=== PATIENT | male | born 2000 | race Caucasian/White ===

== ENCOUNTER 2019-07-22 11:34 | Emergency (ER) | payer OTHER ==
[2019-07-22 12:12] VITALS: BP 148/88
--- NOTE | 2019-07-22 12:13 | UC ---
Eye Complaint HPI - HPI Summary HPI Summary: 18 yo male presents with cold symptoms. He tells me for the last 5-6 days he has been having cold symptoms consisting of a runny nose, sinus congestion, post nasal drip, and intermittent dry cough. 3 days ago he woke up and noticed his eyes were watery and red - have been like this since. He does not wear glasses or contacts. He has not been taking anything OTC for his symptoms. Denies fever, chills, vision changes, eye pain, SOB, rash, n/v - History of Current Complaint Chief Complaint: UCEye Stated Complaint: EYE PROBLEM Time Seen by Provider: 07/22/19 12:13 Hx Obtained From: Patient Onset/Duration: Gradual Onset Severity Currently: None Pain Intensity: 0 - Allergies/Home Medications Allergies/Adverse Reactions: Allergies Allergy/AdvReac Type Severity Reaction Status Date / Time No Known Allergies Allergy Verified 07/22/19 12:12 PMH/Surg Hx/FS Hx/Imm Hx - Additional Past Medical History Additional PMH: None - Surgical History Surgical History: None - Family History Known Family History: Positive: None - Social History Lives: With Family Alcohol Use: Rare Substance Use Type: Marijuana Smoking Status (MU): Never Smoked Tobacco - Immunization History Vaccination Up to Date: Yes Review of Systems All Other Systems Reviewed And Are Negative: No Constitutional: Positive: Negative Skin: Positive: Negative Eyes: Positive: Drainage, Eye Redness ENT: Positive: Nasal Discharge Respiratory: Positive: Cough Cardiovascular: Positive: Negative Gastrointestinal: Positive: Negative Neurological: Positive: Negative Psychological: Positive: Negative Physical Exam - Summary Physical Exam Summary: GENERAL: NAD. WDWN. No pain distress. SKIN: No rashes, sores, lesions, or open wounds. HEENT: Head: AT/NC Eyes: EOM intact. PERRLA. B/L eyes with mild conjunctival inflammation and sclera injection. Clear drainage. Ears: Hearing grossly normal. TMs intact, no bulging, erythema, or edema. Nose: Nasal mucosa pink and moist. NTTP maxillary and frontal sinus. Throat: Posterior oropharynx without exudates, erythema, or tonsillar enlargement. Uvula midline. NECK: Supple. Nontender. No lymphadenopathy. CHEST: CTAB. No r/r/w. No accessory muscle use. Breathing comfortably and in no distress. CV: RRR. Pulses intact. Cap refill <2seconds NEURO: Alert. PSYCH: Age appropriate behavior. Triage Information Reviewed: Yes Vital Signs: Initial Vital Signs Temp 98.1 F 07/22/19 12:07 Pulse 83 07/22/19 12:07 Resp 18 07/22/19 12:07 BP 148/88 07/22/19 12:07 Pulse Ox 97 07/22/19 12:07 Vital Signs Reviewed: Yes Eye Complaint Course/Dx - Course Course Of Treatment: Suspect viral/allergic conjunctivitis. Will rx for symptomatic relief eye drops and advise him to continue supportive care for his likely viral cold and be rechecked if symptoms do not improve - Differential Dx/Diagnosis Provider Diagnosis: Allergic conjunctivitis Discharge ED - Sign-Out/Discharge Documenting (check all that apply): Patient Departure All imaging exams completed and their final reports reviewed: No Studies - Discharge Plan Condition: Stable Disposition: HOME Prescriptions: Olopatadine 0.2% (NF) [Pataday 0.2% (NF)] 1 drop BOTH EYES BID #1 btl Patient Education Materials: Allergic Rhinitis (ED) Referrals: No Primary Care Phys,NOPCP [Primary Care Provider] - Additional Instructions: Your symptoms are likely from a viral infection. Viral infections do not respond to antibiotics and are limited to the treatment of symptoms. Viral infections typically run their course in 7-10 days. Drink plenty of fluids, especially if you are running any fever. Use salt water gargles several times a day. Take over the counter acetaminophen (Tylenol) or ibuprofen (Advil, Motrin) according to directions as needed for pain or fever. You may also use Chloraseptic spray or Cepacol lonzenges according to directions which contain a numbing medication and can provide some temporary relief from a sore throat. Return here or follow up with your primary care provider in 7 days if symptoms persist. - Billing Disposition and Condition Condition: STABLE Disposition: Home
== END 2019-07-22 12:24 | disposition home or self-care (01) ==
LOC: UCEAST 11:34
DX: H10.13 Acute atopic conjunctivitis, bilateral (principal); R05 Cough
CPT/HCPCS: 99201; G0463

== ENCOUNTER 2019-10-27 17:26 | Emergency (ER) | payer OTHER ==
[2019-10-27] MEDS ORDERED: Albuterol/Ipratropium NEB.SOL* (2.5/0.5 MG) 3 ML NEB.SOLN INH ONE (21:19)
[2019-10-27] MEDS: Albuterol/Ipratropium NEB.SOL* (2.5/0.5 MG) 3 ML NEB.SOLN INH SCH (22:35)
--- NOTE | 2019-10-27 22:40 | ED ---
HPI Chest Pain - HPI Summary HPI Summary: 18-year-old male presents with chest pain today. States that chest pain feels like a dull pain. States that is worst when he takes a deep breath. He admits to shortness of breath. No cough. No fevers. No sinus congestion or sore throat. No abdominal pain. No nausea or vomiting. Was not doing anything when the pain started. Pain is constant. Has no medical conditions. No family history of cardiac disease. Denies any drug or alcohol use. Does vape. - History of Current Complaint Chief Complaint: EDChestWallPain Time Seen by Provider: 10/27/19 22:25 Pain Intensity: 6 - Allergy/Home Medications Allergies/Adverse Reactions: Allergies Allergy/AdvReac Type Severity Reaction Status Date / Time No Known Allergies Allergy Verified 07/22/19 12:12 Home Medications: Home Medications NK [No Home Medications Reported] 10/27/19 [History Confirmed 10/27/19] PMH/Surg Hx/FS Hx/Imm Hx Endocrine/Hematology History: Denies: Hx Anticoagulant Therapy Respiratory History: Denies: Hx Asthma Infectious Disease History: No Infectious Disease History: Denies: Traveled Outside the [place] in Last 30 Days - Family History Known Family History: Positive: None - Social History Alcohol Use: None Substance Use Type: Reports: None Smoking Status (MU): Current Some Day Smoker Review of Systems Negative: Fever Positive: Chest Pain Positive: Shortness Of Breath. Negative: Cough All Other Systems Reviewed And Are Negative: Yes Physical Exam Triage Information Reviewed: Yes Vital Signs On Initial Exam: Initial Vitals Temp Pulse Resp BP Pulse Ox 98.8 F 98 18 174/106 98 10/27/19 17:30 10/27/19 17:30 10/27/19 17:30 10/27/19 17:30 10/27/19 17:30 Vital Signs Reviewed: Yes Appearance: Positive: Well-Appearing Skin: Positive: Warm, Dry Head/Face: Positive: Normal Head/Face Inspection Eyes: Positive: Normal, Conjunctiva Clear ENT: Positive: Pharynx normal Respiratory/Lung Sounds: Positive: Clear to Auscultation, Breath Sounds Present Cardiovascular: Positive: Normal, RRR Abdomen Description: Positive: Nontender, Soft Bowel Sounds: Positive: Present Musculoskeletal: Positive: Normal Neurological: Positive: Normal Psychiatric: Positive: Normal Procedures - Sedation Patient Received Moderate/Deep Sedation with Procedure: No Diagnostics - Vital Signs Vital Signs Temp Pulse Resp BP Pulse Ox 10/27/19 20:53 99.1 F 79 20 156/98 98 10/27/19 18:48 98.8 F 85 16 161/93 96 10/27/19 17:30 98.8 F 98 18 174/106 98 - Laboratory Result Diagrams: 10/27/19 21:20 10/27/19 21:20 Lab Statement: Any lab studies that have been ordered have been reviewed, and results considered in the medical decision making process. - Radiology chest Radiology Interpretation Completed By: ED Physician Summary of Radiographic Findings: no active disease - EKG No standard instances Cardiac Rate: NL EKG Rhythm: Sinus Rhythm Summary of EKG Findings: sinus rhythm Chest Pain Course/Dx - Course Course Of Treatment: 18-year-old male presents with chest pain today. States that chest pain feels like a dull pain. States that is worst when he takes a deep breath. He admits to shortness of breath. No cough. No fevers. No sinus congestion or sore throat. No abdominal pain. No nausea or vomiting. Was not doing anything when the pain started. Pain is constant. Has no medical conditions. No family history of cardiac disease. Denies any drug or alcohol use. Does vape. On exam lungs clear to auscultation. Heart regular rate and rhythm. EKG shows sinus rhythm. Chest x-ray normal. Troponin 0. Heart score of 1. no risk factors for PE. We'll discharge to have follow up with primary. Patient understands agrees plan. - Chest Pain Differential Diagnosis/HQI/PQRI: Angina, Chest Wall, Lower Respiratory Infection - Diagnoses Provider Diagnoses: Atypical chest pain - Critical Care Time Critical Care Statement: Critical care time is provided exclusive of any time spent performing procedures. Discharge ED - Sign-Out/Discharge Documenting (check all that apply): Patient Departure - Discharge Plan Condition: Good Disposition: HOME Patient Education Materials: Chest Pain (ED) Referrals: [facility] – [place] [facility] [Outside] - Billing Disposition and Condition Condition: GOOD Disposition: Home
[2019-10-27 22:47] LABS: ABS Eosinophils 0.1 10^3/ul (0-0.6); ABS Lymphocytes 1.9 10^3/ul (1.0-4.8); ABS Monocytes 0.5 10^3/ul (0-0.8); ABS Neutrophils 7.6 10^3/ul (1.5-7.7); Eosinophil % 1.5 %; Hematocrit 51 % (42-52); Hemoglobin 18.2 g/dL (14.0-18.0); Lymphocyte % 18.5 %; Mean Corpuscular HGB Conc 36 g/dL (31-36); Mean Corpuscular Hemoglobin 30 pg (27-31); Mean Corpuscular Volume 85 fL (80-94); Mean Platelet Volume 7.5 fL (7.4-10.4); Nucleated Red Blood Cells % 0.1; Platelet Count 275 10^3/uL (150-450); Red Cell Distribution Width 13 % (10-15); White Blood Count 10.2 10^3/uL (3.5-10.8)
[2019-10-27 22:49] LABS: INR 1.27 (0.82-1.09)
[2019-10-27 23:02] LABS: Albumin 5.1 g/dL (3.2-5.2); Albumin/Globulin Ratio 1.9 (1-3); BUN/Creatinine Ratio 16.3 (8-20); C Reactive Protein 3.9 mg/L (<8.01); Calcium 9.7 mg/dL (8.6-10.3); EGFR African American 110.2 (>60); Globulin 2.7 g/dL (2-4); Potassium 4.2 mmol/L (3.5-5.0); Total Bilirubin 0.4 mg/dL (0.2-1.0); Total Protein 7.8 g/dL (6.4-8.9)
[2019-10-27 23:33] VITALS: BP 144/87
== END 2019-10-27 23:32 | disposition home or self-care (01) ==
LOC: ED 17:26
DX: R07.89 Other chest pain (principal); R06.02 Shortness of breath; Z72.0 Tobacco use
CPT/HCPCS: 36415; 71045; 80053; 83605; 84484; 85025; 85610; 86140; 93005; 99283